=== PATIENT | female | born 1990 | race Caucasian/White ===

== ENCOUNTER 2017-02-19 13:58 | Emergency (ER) | payer SELFPAY ==
[2017-02-19 15:22] LABS: Basophils % (Auto) 0.3 % (0.0-1.8); Eosinophils % (Auto) 0.3 % (0.0-4.3); Hematocrit 37.4 % (30.3-42.9); Hemoglobin 12.5 gm/dl (10.1-14.3); Mean Corpuscular HGB Conc 33 % (30-34); Mean Corpuscular Hemoglobin 30 pg (28-32); Mean Corpuscular Volume 90 fl (79-97); Platelet Count 322 K/mm3 (140-440); Red Blood Count 4.15 M/mm3 (3.65-5.03); Red Cell Distribution Width 13.4 % (13.2-15.2); White Blood Count 14.7 K/mm3 (4.5-11.0)
[2017-02-19 15:37] LABS: Bacteria,Urine 1+ /HPF (Negative); Bilirubin,Urine NEG (Negative); Blood,Urine LG (Negative); Ketones,Urine NEG (Negative); Leukocyte Esterase,Urine SM (Negative); Mucus,Urine FEW /HPF; Nitrite,Urine NEG (Negative); Protein,Urine <15 mg/dL mg/dL (Negative); Urobilinogen,Urine < 2.0 mg/dL (<2.0); WBC,Urine < 1.0 /HPF (0.0-6.0)
--- NOTE | 2017-02-19 19:04 | Ultrasound Report ---
FINAL REPORT PROCEDURE: US OB trans abdominal and transvaginal TECHNIQUE: Real-time transabdominal and transvaginal sonography of the uterus, placenta, amniotic fluid, adnexa, and fetus was performed with image documentation. Measurements were obtained to determine age/size. M-mode Doppler was used to document heartbeat. CPT 72546 and 15716 HISTORY: . Lower pelvic pain. COMPARISON: No prior studies are available for comparison. FINDINGS: LMP: 01/16/2017. Clinical age: 4 weeks 6 days. EDC: 10/23/2017. CRL: No pole identified. Yolk Sac: Normal. Embryonic Cardiac Activity: None detected. Gestational Sac: Mean sac diameter 6.3 millimeters, corresponding to 5 weeks 2 days. Moderate subchorionic bleed. Amniotic fluid: Normal. Cervix: Normal. Uterus: 8.9 x 4.7 x 5.7 centimeters. Right Ovary: 3.5 x 2.1 x 2.0 centimeters. Normal flow. Hypoechoic complex 1.3 centimeter lesion. Left Ovary: 2.5 x 1.6 x 1.7 centimeters. Normal flow. Estimated delivery date: 10/20/2017. Uterus and adnexa: Normal. IMPRESSION: Hypoechoic intrauterine sac. By measurements corresponds to 5 weeks 2 days with EDC of 10/20/2017. Moderate subchorionic bleed. No definite pole or cardiac activity. Consider this could represent very early intrauterine gestation. Hypoechoic complex area in the right ovary, may represent complex cyst. Although less likely without definite intrauterine cannot completely exclude ectopic. Recommend clinical correlation, correlation with beta HCG, and short-term followup pelvic ultrasound.
--- NOTE | 2017-02-19 19:07 | Ultrasound Report ---
FINAL REPORT PROCEDURE: US OB trans abdominal and transvaginal TECHNIQUE: Real-time transabdominal and transvaginal sonography of the uterus, placenta, amniotic fluid, adnexa, and fetus was performed with image documentation. Measurements were obtained to determine age/size. M-mode Doppler was used to document heartbeat. CPT 45921 and 53380 HISTORY: . Lower pelvic pain. COMPARISON: No prior studies are available for comparison. FINDINGS: LMP: 01/16/2017. Clinical age: 4 weeks 6 days. EDC: 10/23/2017. CRL: No pole identified. Yolk Sac: Normal. Embryonic Cardiac Activity: None detected. Gestational Sac: Mean sac diameter 6.3 millimeters, corresponding to 5 weeks 2 days. Moderate subchorionic bleed. Amniotic fluid: Normal. Cervix: Normal. Uterus: 8.9 x 4.7 x 5.7 centimeters. Right Ovary: 3.5 x 2.1 x 2.0 centimeters. Normal flow. Hypoechoic complex 1.3 centimeter lesion. Left Ovary: 2.5 x 1.6 x 1.7 centimeters. Normal flow. Estimated delivery date: 10/20/2017. Uterus and adnexa: Normal. IMPRESSION: Hypoechoic intrauterine sac. By measurements corresponds to 5 weeks 2 days with EDC of 10/20/2017. Moderate subchorionic bleed. No definite pole or cardiac activity. Consider this could represent very early intrauterine gestation. Hypoechoic complex area in the right ovary, may represent complex cyst. Although less likely without definite intrauterine cannot completely exclude ectopic. Recommend clinical correlation, correlation with beta HCG, and short-term followup pelvic ultrasound.
[2017-02-19] MEDS ORDERED: TYLENOL PO ONE (20:11)
[2017-02-19 20:35] VITALS: BP 108/60
--- NOTE | 2017-02-20 06:16 | Emergency Department Report ---
Entered by JANE SCANLON, acting as scribe for ROSALES HERNANDEZ PA. ED Female HPI - General Chief complaint: Urogenital-Female Stated complaint: 4 WKS PREG/LOWER ABD PAIN Source: patient Mode of arrival: Ambulatory Limitations: No Limitations - History of Present Illness Initial comments: 26 y/o female with no significant PMHx presents to the ED c/o of lower abdominal pain that began this morning. Rates pain an 8/10 in severity, which she states radiates to her left side. Patient describes pain as sore and pressure in quality. Denies vaginal bleeding, discharge, dysuria, hematuria, fever, chills, nausea, vomiting, and diarrhea. Notes she took an at home test on 02/16/2017 and received positive results. Notes LMP was normal. LMP 01/16/2017. Complaint: other (lower abdominal pain) -: This morning Radiation: LLQ Severity: moderate Severity scale (0 -10): 8 Quality: other (sore and pressure) Consistency: constant Improves with: none Worsens with: none Are you Now?: Yes Last Menstrual Period: 01/16/17 EDC: 10/23/17 Associated Symptoms: denies other symptoms, abdominal pain. denies: vaginal discharge, vaginal bleeding, nausea/vomiting, fever/chills, headaches, dysuria, hematuria, rash, shortness of breath - Related Data Sexually active: Yes Previous Rx's Medication Instructions Recorded Last Taken Type Acetaminophen [Acetaminophen ER 650 mg PO Q8HR PRN #20 tablet.er 02/19/17 Unknown Rx TAB] Nitrofurantoin Dawson/M-Cryst 100 mg PO Q12HR #14 capsule 02/19/17 Unknown Rx [Macrobid CAP] Vit No.130/Iron/FA 1 each PO QDAY #30 tablet 02/19/17 Unknown Rx [ Tablet] Allergies Allergy/AdvReac Type Severity Reaction Status Date / Time No Known Allergies Allergy Unverified 02/19/17 14:55 ED Review of Systems Comment: All other systems reviewed and negative Constitutional: no symptoms reported. denies: chills, fever Respiratory: no symptoms reported. denies: cough, shortness of breath Cardiovascular: as per HPI. denies: chest pain Endocrine: no symptoms reported Gastrointestinal: as per HPI, abdominal pain. denies: nausea, vomiting, diarrhea Genitourinary: as per HPI. denies: hematuria, discharge, other (vaginal bleeding) Musculoskeletal: as per HPI. denies: back pain Skin: as per HPI. denies: rash ED Past Medical Hx - Past Medical History Previous Medical History?: No - Surgical History Past Surgical History?: No - Social History Smoking Status: Never Smoker Substance Use Type: None - Medications Home Medications: Home Medications Medication Instructions Recorded Confirmed Last Taken Type Acetaminophen [Acetaminophen ER 650 mg PO Q8HR PRN #20 tablet.er 02/19/17 Unknown Rx TAB] Nitrofurantoin Dawson/M-Cryst 100 mg PO Q12HR #14 capsule 02/19/17 Unknown Rx [Macrobid CAP] Vit No.130/Iron/FA 1 each PO QDAY #30 tablet 02/19/17 Unknown Rx [ Tablet] ED Physical Exam - General Limitations: No Limitations General appearance: alert, in no apparent distress - Head Head exam: Present: atraumatic, normocephalic - Eye Eye exam: Present: normal appearance, EOMI Pupils: Present: normal accommodation - ENT ENT exam: Present: normal exam, mucous membranes moist - Neck Neck exam: Present: normal inspection, full ROM. Absent: lymphadenopathy - Respiratory Respiratory exam: Present: normal lung sounds bilaterally. Absent: respiratory distress, wheezes, rales, rhonchi - Cardiovascular Cardiovascular Exam: Present: regular rate, normal rhythm. Absent: systolic murmur, diastolic murmur, rubs, gallop - GI/Abdominal GI/Abdominal exam: Present: soft, normal bowel sounds. Absent: distended, tenderness, guarding, rebound, rigid - Extremities Exam Extremities exam: Present: normal inspection, full ROM - Back Exam Back exam: Present: normal inspection, full ROM, CVA tenderness (L). Absent: CVA tenderness (R) - Neurological Exam Neurological exam: Present: alert, oriented X3 - Psychiatric Psychiatric exam: Present: normal affect, normal mood - Skin Skin exam: Present: warm, dry, intact. Absent: rash ED Course Vital Signs 02/19/17 14:57 Temperature 98.0 F Pulse Rate 79 Respiratory 17 Rate Blood Pressure 103/62 O2 Sat by Pulse 100 Oximetry ED Medical Decision Making - Lab Data Result diagrams: 02/19/17 15:04 - Medical Decision Making 26-year-old female presents with urinary tract infection/positive In the ED, patient will receive pain medication to relieve abdominal pain. Urinalysis positive for bacteria. ultrasound shows intrauterine and mild right sided hypo-genic findings are not exclude ectopic Patient shows no right-sided tenderness. We'll treat with antibiotics for UTI. Discussed with patient the need for serial ultrasounds as well as quant levels Patient is in no acute distress at this time. She will be discharged home. Patient instructed to follow up with [facility] in 1 to 2 days. Patient verbalized understanding. She is encouraged to return to the emergency room for any worsening symptoms. Vital Signs are normal - Differential Diagnosis 1. UTI 2. Ectopic 3. Intrauterine 4. Ovarian cyst ED Disposition Clinical Impression: UTI (urinary tract infection) Qualifiers: Urinary tract infection type: acute cystitis Hematuria presence: with hematuria Qualified Code(s): N30.01 - Acute cystitis with hematuria Normal IUP (intrauterine ) on ultrasound Qualifiers: Trimester: first trimester Qualified Code(s): Z34.91 - Encounter for supervision of normal , unspecified, first trimester Disposition: DISCHARGED TO HOME OR SELFCARE Is pt being admited?: No Does the pt Need Aspirin: No Condition: Stable Instructions: Ectopic (ED), Urinary Tract Infection in Women (ED), (ED) Additional Instructions: Follow-up with a OB in 2 days for a quant level Follow-up in one week for another ultrasound If any worsening pain, fever or worsening symptoms return to nearest ED Prescriptions: Acetaminophen [Acetaminophen ER TAB] 650 mg PO Q8HR PRN #20 tablet.er PRN Reason: Pain Nitrofurantoin Dawson/M-Cryst [Macrobid CAP] 100 mg PO Q12HR #14 capsule Vit No.130/Iron/FA [ Tablet] 1 each PO QDAY #30 tablet Referrals: PRIMARY CARE, [Primary Care Provider] - 3-5 Days LELAND MELO MD [Referring] - 3-5 Days HARVEY MELO MD [Referring] - 3-5 Days IRINA SUBRAMANIAN MD [Referring] - 3-5 Days HASMUKH TORRES MD [Referring] - 3-5 Days Forms: Accompanied Note, Work/School Release Form(ED) Time of Disposition: 20:11 This documentation as recorded by the GHISLAINE sneed JASMINE,accurately reflects the service I personally performed and the decisions made by me,ROSALES HERNANDEZ PA.
== END 2017-02-19 20:34 | disposition home or self-care (01) ==
LOC: ED 13:58
DX: O23.31 Infections of other parts of urinary tract in pregnancy, first trimester (principal); N30.01 Acute cystitis with hematuria; Z3A.01 Less than 8 weeks gestation of pregnancy
CPT/HCPCS: 36415; 76801; 76817; 81001; 84702; 85025